=== PATIENT | male | born 1965 ===

== ENCOUNTER 2024-01-22 06:42 | Day surgery (SDC) | payer OTHER ==
[2024-01-22] MEDS ORDERED: fentaNYL CITRATE 50 MCG/ML AMPUL IV PUSH ONE (10:15)
[2024-01-22] MEDS ORDERED: MIDAZOLAM HCL 2 MG/2 ML VIAL IV ONE (10:15)
[2024-01-22] MEDS ORDERED: DIPHENHYDRAMINE HCL 50 MG/ML VIAL 1ML IV ONE (10:15)
== END 2024-01-22 11:55 | disposition home or self-care (01) ==
LOC: AMB-ENDOS 06:42
PROVIDERS: ATTEND Colon & Rectal Surgery
DX: K62.5 Hemorrhage of anus and rectum (principal); Z91.011 Allergy to milk products